=== PATIENT | male | born 1945 | race Caucasian/White ===

== ENCOUNTER 2019-07-18 15:57 | Inpatient (IN) | payer MEDICARE ==
[2019-07-18 18:41] VITALS: BMI 23.6
[2019-07-18] MEDS ORDERED: Acetaminophen 325 MG TAB PO PRN (19:46)
[2019-07-18] MEDS ORDERED: Acetaminophen/Codeine 30-300mg Tablet PO PRN (19:47)
[2019-07-18] MEDS ORDERED: Ventolin HFA Inhaler 60 PUFF INHALER INH PRN (20:24)
[2019-07-18] MEDS ORDERED: FLU VACC QS2019-20(6MOS UP)/PF 60 MCG/0.5 ML SYRINGE IM ONE (21:00)
[2019-07-18] MEDS: Carvedilol 25 MG TAB PO SCH (22:23)
[2019-07-18] MEDS: Aspirin Chewable 81 MG TAB PO SCH (22:23)
[2019-07-18] MEDS: Docusate 100 MG CAP PO SCH (22:24)
[2019-07-18] MEDS: Magnesium Oxide 400 MG TAB PO SCH (22:24)
[2019-07-18] MEDS: Famotidine 20 MG TAB PO SCH (22:24)
[2019-07-18] MEDS: HYDROcodone/Acetaminophen 5/325 mg Tablet PO PRN (22:25)
[2019-07-18] MEDS: Budesonide 0.5 MG/2 ML NEB NEB SCH (22:27)
[2019-07-19 05:43] LABS: #Basophils 0.1 thou/uL (0.0-0.2); #Eosinphils 0.2 thou/uL (0.0-0.7); #Lymphocytes 1.5 thou/uL (1.20-3.40); #Monocytes 0.5 thou/uL (0.11-0.59); #Neutrophils 3.1 thou/uL (1.40-6.50); %Eosinophils 3.8 % (0.0-10.0); %Monocytes 8.9 % (0.0-10.0); %Neutrophils 58.3 % (42.0-75.0); Hemoglobin 8.1 g/dL (14.0-18.0); Mean Corpuscular HGB CONC 32.3 g/dL (32.0-36.0); Mean Corpuscular Hemoglobin 30.3 pg (27.0-31.0); Mean Platelet Volume 5.8 fL (7.4-10.4); Platelet Count 340 thou/uL (130-400); RBC Distribution Width 12.7 % (11.5-14.5); Red Blood Cell (RBC) Count 2.68 mill/uL (4.70-6.10); White Blood Cell (WBC) Count 5.3 thou/uL (4.8-10.8)
[2019-07-19 05:59] LABS: ALT (SGPT) 6 U/L (8-55); AST (SGOT) 11 U/L (5-34); Albumin 3.3 g/dL (3.4-4.8); Alkaline Phosphatase 87 U/L (40-110); Anion Gap 13 mmol/L (10-20); BUN (Urea Nitrogen) 26 mg/dL (8.4-25.7); Bilirubin, Total 0.3 mg/dL (0.2-1.2); Calc. Creatinine Clearance 73 mL/min (70-130); Calcium 9.3 mg/dL (7.8-10.44); Carbon Dioxide 24 mmol/L (23-31); Chloride 109 mmol/L (98-107); Estimated GFR-MDRD 75; Globulin 2.6 g/dL (2.4-3.5); Glucose 94 mg/dL (83-110); Potassium 3.8 mmol/L (3.5-5.1); Protein, Total 5.9 g/dL (5.8-8.1); Sodium 142 mmol/L (136-145)
[2019-07-19] MEDS: HYDROcodone/Acetaminophen 5/325 mg Tablet PO PRN ×3 (08:10→21:39)
[2019-07-19] MEDS: Docusate 100 MG CAP PO SCH ×2 (08:12→21:41)
[2019-07-19] MEDS: Losartan Potassium 50 MG TAB PO SCH (08:12)
[2019-07-19] MEDS: Famotidine 20 MG TAB PO SCH ×2 (08:12→21:41)
[2019-07-19] MEDS: Carvedilol 25 MG TAB PO SCH ×2 (08:13→21:41)
[2019-07-19] MEDS: Aspirin Chewable 81 MG TAB PO SCH ×2 (08:13→21:40)
[2019-07-19] MEDS: Thiamine 100 MG TAB PO SCH (08:13)
[2019-07-19] MEDS: Ferrous Sulfate 325 MG TAB PO SCH (08:13)
[2019-07-19] MEDS: Multivitamin W/ Minerals 1 TAB PO SCH (08:13)
[2019-07-19] MEDS: Budesonide 0.5 MG/2 ML NEB NEB SCH ×2 (08:13→21:41)
[2019-07-19] MEDS: Magnesium Oxide 400 MG TAB PO SCH ×2 (08:13→21:41)
[2019-07-19] MEDS: Folic Acid 1 MG TAB PO SCH (08:13)
[2019-07-19] MEDS: Polyethylene Glycol 3350 17 GM Packet PO SCH (08:16)
--- NOTE | 2019-07-19 13:07 | HP ---
CHIEF COMPLAINT: Right femur fracture, status post surgical fixation for therapy. BRIEF HISTORY: The patient apparently fell at home, and there is question of syncope. There is documentation in his previous [facility] and [facility] about significant alcohol use plus he was also on oxycodone taking four tablets daily for apparently chronic pain. He was transferred here on Tylenol No. 3 for pain. Last night, nursing called me and stated that his pain was not controlled, and I ordered hydrocodone 5/325. This morning, as soon as I walked in to talk to the patient, he was belligerent and he was stating that he is not getting what he was promised and he needs his oxycodone and we do not care about him, and I tried to talk to him and explained to him that there is documentation that this fall may have been related to his combination of alcohol and oxycodone use, and even though he was sent here only on Tylenol No. 3, I have increased his pain medicine to a stronger one at hydrocodone, and will monitor response after some time and see how it works before we readdress the issue, but he remained belligerent, and I had to walk out of the room. He apparently wants to leave AMA if he does not get his oxycodone, and certainly, I am not going to prescribe oxycodone when there is documentation that that may have contributed to his fall along with his alcohol use. I did not have a chance to examine the patient or go through anything else. Job ID: [id number]
[2019-07-20] MEDS: Docusate 100 MG CAP PO SCH (08:09)
[2019-07-20] MEDS: Carvedilol 25 MG TAB PO SCH (08:09)
[2019-07-20] MEDS: Losartan Potassium 50 MG TAB PO SCH (08:09)
[2019-07-20] MEDS: Aspirin Chewable 81 MG TAB PO SCH (08:09)
[2019-07-20] MEDS: Famotidine 20 MG TAB PO SCH (08:09)
[2019-07-20] MEDS: Folic Acid 1 MG TAB PO SCH (08:09)
[2019-07-20] MEDS: Thiamine 100 MG TAB PO SCH (08:09)
[2019-07-20] MEDS: Magnesium Oxide 400 MG TAB PO SCH (08:09)
[2019-07-20] MEDS: Multivitamin W/ Minerals 1 TAB PO SCH (08:09)
[2019-07-20] MEDS: Polyethylene Glycol 3350 17 GM Packet PO SCH (08:09)
[2019-07-20] MEDS: Ferrous Sulfate 325 MG TAB PO SCH (08:09)
[2019-07-20] MEDS: HYDROcodone/Acetaminophen 5/325 mg Tablet PO PRN ×3 (08:10→16:32)
[2019-07-20] MEDS: Budesonide 0.5 MG/2 ML NEB NEB SCH (08:11)
[2019-07-20 14:54] VITALS: BP 170/81; TEMP 98.1
== END 2019-07-20 17:02 | disposition left against medical advice (07) | DRG 561 ==
LOC: NAV ACUTE 15:57
PROVIDERS: ADMIT Internal Medicine; ATTEND Internal Medicine
DX: Z47.89 Encounter for other orthopedic aftercare (principal); G89.29 Other chronic pain; S72.91XD Unspecified fracture of right femur, subsequent encounter for closed fracture with routine healing; W18.30XD Fall on same level, unspecified, subsequent encounter
CPT/HCPCS: 36415; 80053; 85025; 87070; 87205; 94640; J7620; J7626